=== PATIENT | male | born 1955 | race Caucasian/White ===

== ENCOUNTER → 2022-11-18 | Outpatient (CLI) | payer MEDICARE, OTHER ==
[~2022-11-18] MED LIST: HOLD METFORMIN - RECEIVED CONTRAST 20 ML VIAL IV SCH; IOHEXOL 350 MG/ML 100 ML (OMNIPAQUE 350) VIAL IV ONE; NS 100 ML (IVPB) BAG IV ONE
[2022-11-18 10:15] LABS: CREATININE SERUM 0.85 MG/DL (0.60-1.30)
--- NOTE | 2022-11-18 13:43 | Diagnostic Imaging Report ---
INDICATION: Pulmonary nodule, history of thoracic aneurysm. TECHNIQUE: Multiple contiguous axial images were obtained through the chest after administration of intravenous contrast. Auto Exposure Controls were utilized during the CT exam to meet ALARA standards for radiation dose reduction. COMPARISON: There is no previous study for comparison. FINDINGS: There are no enlarged mediastinal or hilar nodes. There are no enlarged axillary nodes or chest wall lesions. There are coronary artery calcifications, compatible with coronary artery disease. There is no pleural or pericardial fluid. The visualized portions of the upper abdomen demonstrate mild fatty change of the liver. There is diffuse degenerative change throughout the thoracic vertebrae. The thoracic aorta shows some atherosclerotic plaquing. The maximal diameter of the ascending aorta was 4 cm which is borderline. Aortic arch and descending aorta are normal in caliber. Lung parenchymal windows demonstrate a small 4 mm subpleural nodule in the right lower lobe, best seen on image 105 of series 3. There is a minimal triangular shaped nodule in the right upper lobe adjacent to the minor fissure measuring 4 mm as well. There is a 4 mm right middle lobe nodule. IMPRESSION: There are three small nodules in the right lung as above measuring 4 mm. Nodules of this size do not require followup unless the patient is of high clinical risk. The ascending aorta is borderline in size measuring 4 cm. There are coronary artery calcifications, compatible with coronary artery disease. There is diffuse fatty infiltration of the liver. Dictated by: Dictated on workstation # [id number]
== END ==
LOC: RAD 09:23
PROVIDERS: ATTEND Nurse Practitioner Family
DX: I25.10 Atherosclerotic heart disease of native coronary artery without angina pectoris (principal); R91.8 Other nonspecific abnormal finding of lung field; K76.0 Fatty (change of) liver, not elsewhere classified
CPT/HCPCS: 36415; 71260; 82565; 84520